=== PATIENT | male | born 1990 | race Caucasian/White ===

== ENCOUNTER 2022-03-05 09:17 | Emergency (ER) | payer MEDICARE, MEDICAID, SELFPAY ==
[2022-03-05 09:31] VITALS: BP 142/80; PULSE 76; RESP 16; TEMP 36.8; O2SAT 98; BMI 31.0
[2022-03-05 10:44] LABS: MANUAL DIFF FLAG NO
--- NOTE | 2022-03-05 10:44 | ED.MEDCLEAR ---
HPI - Medical Clearance General Chief complaint: Wound/Laceration Stated complaint: Needle stick Time Seen by Provider: 03/05/22 10:17 Source: patient Mode of arrival: ambulatory Limitations: no limitations History of Present Illness HPI Narrative: 31-year-old male who is currently at the recovery center presenting to the ED with complaints of a needlestick injury that occurred yesterday to his right hand middle finger where he was stuck by an unknown needle. He reports he cleans it was alcohol right away. He reports that he just tested negative for HIV approximately 2 weeks ago. He denies any other symptoms complaints concerns or injuries at this time. He reports that he is interested in the prophylactic for HIV. MD complaint: medical clearance requested Onset (ago): day(s) (Yesterday) Reason for Medical Clearance: other (Needlestick injury) Place: other (While at the recovery center) Related Information Allergies Allergy/AdvReac Type Severity Reaction Status Date / Time No Known Allergies Allergy Verified 03/05/22 09:30 Review of Systems Review of Systems: Constitutional : No Weight loss, No Fever, No Chills, No Night Sweats, No Fatigue, No Malaise ENT/Mouth : No Hearing loss, No Ear Pain, No Nasal Congestion, No Sinus Pain, No Hoarseness, No sore throat, No Rhinorrhea, No Swallowing Difficulty Eyes: No Eye Pain, No Swelling, No Redness, No Foreign Body, No Discharge, No Vision Changes Cardiovascular : No Chest Pain, No SOB, No Dyspnea on Exertion, No Orthopnea, No Edema, No Palpitations Respiratory : No Cough, No Sputum, No Wheezing, No Smoke Exposure, No Dyspnea Gastrointestinal : No Nausea, No Vomiting, No Diarrhea, No Constipation, No abdominal Pain, No Hematochezia, No Melena Genitourinary : no irregular bleeding, No Dysuria, No Urinary Frequency, No Hematuria, No Urinary Incontinence, No Urgency, No Flank Pain, No Urinary Flow Changes, No Hesitancy Musculoskeletal : No joint pain, No Myalgias, No Joint Swelling Skin : + needle stick injury to right hand middle finger distal aspect, No Skin Lesions, No rash Neuro : No Weakness, No Numbness, No Paresthesias, No Loss of Consciousness, No Dizziness, No Headache Psych : No Anxiety/Panic, No Depression, No SI/HI/AH/VH, No Social Issues, Heme/Lymph: No Bruising, No Bleeding,No Lymphadenopathy Endocrine : No Polyuria, No Polydipsia, No Temperature Intolerance Yes all other systems are reviewed and are negative [facility] Past Medical History Attestation statement: The following information was validated with the patient. Medical History Drug abuse FH: cholecystectomy Surgical History Hx of appendectomy Social History Social History Advance Directives: No Advance Directives Information Provided: No Physical Exam Vital Signs: Vital Signs: Last Vital Signs Temp 98.3 F 03/05/22 09:31 Pulse 76 03/05/22 09:31 Resp 16 03/05/22 09:31 BP 142/80 H 03/05/22 09:31 Pulse Ox 98 03/05/22 09:31 BMI result Body Mass Index 31.0 vital signs have been reviewed as normal and appeared to be correct. Blood pressure normal Heart rate normal. Respiration rate normal. Temperature normal. Oxygen saturation normal. Appearance: Alert. Oriented X3. No acute distress. Head: Normal external exam. Normocephalic. Atraumatic. Eyes: PERRLA. EOMI. Conjunctiva and sclera normal. Eyelids normal. ENT: Pharynx normal. Uvula midline. Moist mucous membranes. Neck: Normal inspection. Neck supple. FROM. CVS: Normal heart rate and rhythm. Respiratory: No respiratory distress. Painless inspiration. Skin: Skin warm and dry. Normal skin color. Normal skin turgor. No rashes/lesions/lacerations noted. Extremities: Extremities exhibit normal range of motion. Extremities nontender. Neuro: Oriented X 3. No motor deficit. No sensory deficit. Reflexes normal. Normal steady gait. No focal neuro deficits noted. Vascular: + radial pulses/+ 2 distal pedal pulses/+2 dorsalis pedis b/l. Normal cap refill. No cyanosis noted to upper extremity nails and lower extremity toes nails. Course Course Course Narrative: 10:45am - 31-year-old male who is currently at the recovery center presenting to the ED with complaints of a needlestick injury that occurred yesterday to his right hand middle finger where he was stuck by an unknown needle. He reports he cleans it was alcohol right away. He reports that he just tested negative for HIV approximately 2 weeks ago. He denies any other symptoms complaints concerns or injuries at this time. He reports that he is interested in the prophylactic for HIV. Plan: Labs including HIV/Hep B and Hep C and provide post exposure kit. Reevaluation(s) Reevaluation #1: - labs within normal limits. HIV/hepatitis B and hepatitis C pending. Will DC home with HIV post exposure kit and instructions to follow-up with Infectious Disease versus PCP versus were connection to return if any new or worsening symptoms and if anything is positive we will contact him. Patient understands agrees with this plan. Time: 11:20 MDM - Medical Clearance Medical Records Attestation: I reviewed the patient's medical records. Lab Data Attestation: I reviewed the patient's lab results. Result diagrams: 03/05/22 10:41 03/05/22 10:41 Labs: Lab Results 03/05/22 03/05/22 Range/Units 10:41 10:41 WBC 8.8 (4.8-10.8) X10*3/uL RBC 5.12 (4.60-5.80) X10*6/uL Hgb 13.8 L (14.0-18.0) g/dl Hct 42.6 (42.0-52.0) % MCV 83.2 (80.0-98.0) fL MCH 27.0 (27.0-33.0) pg MCHC 32.4 (31.0-36.0) g/dl RDW 13.9 (11.0-16.0) % Plt Count 226 (160-400) X10*3/uL MPV 10.1 (9.4-12.4) fL Immature Gran % (Auto) 0.2 (0.0-0.4) % Neut % (Auto) 63.0 (45-73) % Lymph % (Auto) 22.6 (20-40) % Atkinson % (Auto) 11.5 H (2-11) % Eos % (Auto) 2.4 (0-4) % Baso % (Auto) 0.3 (0-2) % Lymph # (Auto) 2.0 (1.2-4.9) X10*3/uL Atkinson # (Auto) 1.0 (0.1-1.2) X10*3/uL Eos # (Auto) 0.2 (0.0-0.4) X10*3/uL Baso # (Auto) 0.0 (0.0-0.2) X10*3/uL Abs Immat Gran (auto) 0.02 (0.00-0.03) X10*3/uL Absolute Neuts (auto) 5.6 (2.0-8.3) x10*3/uL Absolute Nucleated RBC 0.000 (0.0-0.012) X10*3/uL Nucleated RBC % (auto) 0.0 (0.0-0.2) /100WBC Sodium 141 (135-145) mmol/L Potassium 4.4 (3.3-5.1) mmol/L Chloride 107 (96-108) mmol/L Carbon Dioxide 28 (22-29) mmol/L Anion Gap 10 L (12-20) BUN 13 (9-16) mg/dL Creatinine 0.83 (0.5-1.4) mg/dL Estim Creat Clear Calc 166.9 Estimated GFR > 60 Random Glucose 93 (60-115) mg/dL Calcium 9.8 (8.4-10.2) mg/dL Magnesium 2.0 (1.6-2.6) mg/dL Total Bilirubin 0.6 (0.0-1.0) mg/dL Direct Bilirubin 0.2 (0.0-0.5) mg/dL AST 23 (5-37) U/L ALT 16 (0-40) U/L Alkaline Phosphatase 77 (39-117) U/L Total Protein 7.0 (6.5-8.0) g/dL Albumin 4.3 (3.5-5.0) g/dL Discharge Plan Discharge Clinical Impression: Accidental hypodermic needlestick injury Patient Disposition: Home, Self-Care Instructions: Needle Stick Injuries (ED) Additional Instructions: You have pending lab results if any are positive you will be contacted. Follow-up with your PCP/infectious disease vs were connection. Referrals: [facility] [Provider Group] Joanna Cade MD [Physician] - Physician,Unknown J [Primary Care Provider] - (your pcp) Print Language: Macedonian
[2022-03-05 10:59] LABS: Basophils Percent Auto 0.3 % (0-2); Eosinophils Absolute Auto 0.2 X10*3/uL (0.0-0.4); Eosinophils Percent Auto 2.4 % (0-4); Hematocrit 42.6 % (42.0-52.0); Hemoglobin 13.8 g/dl (14.0-18.0); Imm Gran Abs Auto 0.02 X10*3/uL (0.00-0.03); Imm Gran Pct Auto 0.2 % (0.0-0.4); Lymphocytes Percent Auto 22.6 % (20-40); Mean Corpuscular HGB Conc 32.4 g/dl (31.0-36.0); Mean Corpuscular Volume 83.2 fL (80.0-98.0); Mean Platelet Volume 10.1 fL (9.4-12.4); Monocytes Percent Auto 11.5 % (2-11); Neutrophils Absolute Auto 5.6 x10*3/uL (2.0-8.3); Platelet Count 226 X10*3/uL (160-400); Red Blood Count 5.12 X10*6/uL (4.60-5.80); Red Cell Distribution Width 13.9 % (11.0-16.0); White Blood Count 8.8 X10*3/uL (4.8-10.8)
[2022-03-05 11:06] LABS: Alanine Aminotransferase 16 U/L (0-40); Albumin Level 4.3 g/dL (3.5-5.0); Alkaline Phosphatase 77 U/L (39-117); Anion Gap 10 (12-20); Aspartate Amino Transferase 23 U/L (5-37); Bilirubin Direct 0.2 mg/dL (0.0-0.5); Bilirubin Total 0.6 mg/dL (0.0-1.0); Blood Urea Nitrogen 13 mg/dL (9-16); Calcium 9.8 mg/dL (8.4-10.2); Carbon Dioxide 28 mmol/L (22-29); Chloride 107 mmol/L (96-108); Creatinine Clr Calc Pharmacy 166.9; Estimated Glomerular Filt Rate > 60; Glucose Random 93 mg/dL (60-115); Potassium 4.4 mmol/L (3.3-5.1); Sodium 141 mmol/L (135-145)
[2022-03-05 11:27] LABS: ~Hepatitis C Antibody Nonreactive (Nonreactive)
[2022-03-05] MEDS: Post Exposure Medication Kit 1 KIT PO (11:29)
[2022-03-05 11:31] LABS: HBS Num1 4.25 mIU/mL (0-7.99); HBc Num1 0.07 S/CO (0.00-0.79); HBsAGNum1 0.23 S/CO (0.00-0.99); HIV AB/AG Nonreactive (Nonreactive); HIV Num 1 0.45 S/CO (0.00-0.99); Hepatitis B Core Antibody Nonreactive (Nonreactive); Hepatitis B Surface Antigen Negative (Negative); ~Hepatitis B Surface Antibody NONREACTIVE (Nonreactive)
== END 2022-03-05 11:36 | disposition home or self-care (01) ==
PROVIDERS: Physician Assistant Medical; Emergency Provider Emergency Medicine
DX: S61.232A Puncture wound without foreign body of right middle finger without damage to nail, initial encounter (principal); Y28.9XXA Contact with unspecified sharp object, undetermined intent, initial encounter; Y93.9 Activity, unspecified; Y92.9 Unspecified place or not applicable; Y99.9 Unspecified external cause status; Z20.828 Contact with and (suspected) exposure to other viral communicable diseases
CPT/HCPCS: 36415; 80048; 80076; 83735; 85025; 86704; 86706; 86803; 87340; 87389; 99283

== ENCOUNTER 2022-03-06 11:28 | Emergency (ER) | payer MEDICARE, MEDICAID, SELFPAY ==
[2022-03-06 11:48] VITALS: BP 142/70; PULSE 75; RESP 16; TEMP 36.6; O2SAT 99; BMI 31.0
[2022-03-06 12:24] LABS: Amphetamine Screen Urine Not Detected (Not Detect); Barbiturates, Urine Not Detected (Not Detect); Benzodiazepines Screen Urine Not Detected (Not Detect); Cannabinoid Screen Urine Not Detected (Not Detect); Cocaine Screen Urine Not Detected (Not Detect); Fentanyl, urine POSITIVE (Not Detect); Opiate Screen Urine POSITIVE (Not Detect); Phencyclidine Screen Urine Not Detected (Not Detect)
--- NOTE | 2022-03-06 14:35 | ED_ITS ---
HPI - Medical Clearance General Chief complaint: Medical Clearance Stated complaint: Medical clearance Time Seen by Provider: 03/06/22 14:23 Source: patient Mode of arrival: ambulatory Limitations: no limitations History of Present Illness HPI Narrative: Patient presents to the emergency department, his dual diagnosis program. He reports that he has been 19 days ago continues to test positive for opiates. He denies using over the past 19 days, states it is a locked facility cameras and he would be unable to use. He states that he needs medical clearance stating that he does not require Suboxone or methadone for withdrawal symptoms. Patient denies runny nose excessive yawning, restlessness, irritability, pain, chills, sweating, abdominal pain, nausea, vomiting, diarrhea, muscle cramping /aching. Related Information Previous Rx's Medication Instructions Recorded naloxone 4 mg/actuation nasal 4 mg INTRANASAL Q3M PRN #2 ea 03/06/22 spray (Narcan) Allergies Allergy/AdvReac Type Severity Reaction Status Date / Time No Known Allergies Allergy Verified 03/05/22 09:30 Review of Systems Review of Systems: Constitutional: No weight loss, fever, chills, sweats, weakness or fatigue. Skin: No rash or itching. Cardiovascular: No chest pain, chest pressure or chest discomfort. No palpitations or pedal edema. Respiratory: No shortness of breath, cough or sputum production. Gastrointestinal: No anorexia, nausea, vomiting or diarrhea. No abdominal pain or blood in stool. Genitourinary: No burning micturition. No urinary frequency or incontinence. Musculoskeletal: No muscle pain, back pain, joint pain or stiffness. Psychiatric: No depression or anxiety. Yes all other systems are reviewed and are negative PMFSH Past Medical History Attestation statement: The following information was validated with the patient. Source: old records reviewed Medical History Drug abuse FH: cholecystectomy Surgical History Hx of appendectomy Social History Social History Advance Directives: No Physical Exam Vital Signs: Vital Signs: Last Vital Signs Temp 98 F 03/06/22 11:48 Pulse 75 03/06/22 11:48 Resp 16 03/06/22 11:48 BP 142/70 H 03/06/22 11:48 Pulse Ox 99 03/06/22 11:48 BMI result Body Mass Index 31.0 Vital signs have been reviewed as normal and appeared to be correct. Blood pressure mildly elevated 142/70.? Heart rate normal.? Respiration rate normal. Temperature normal.? Oxygen saturation normal. Appearance: Alert.?Oriented to person, place and time. No acute distress.?Normal affect. Eyes: Pupils equal, round and reactive to light.? ENT: Pharynx normal.?? Neck: Normal inspection.? Neck supple.?? CVS: Heart sounds normal. Normal heart rate and rhythm.? Pulses normal.?? Respiratory: No respiratory distress.? Lung sounds clear to auscultation bilaterally?? Abdomen: Soft and non-tender. Normoactive bowel sounds. Skin: Skin warm and dry.? Normal skin color.? Normal skin turgor.?? Extremities: No lower extremity edema.? Neuro: Moves all extremities spontaneously. Sensation intact bilaterally. No focal neuro deficits. Ambulates with normal steady gait. Course Course Course Narrative: Patient is a 31-year-old male with a history of substance use disorder. Patient was evaluated in the emergency department yesterday for an accidental needlestick injury from the needle, he is vague about the history of this incident. Urine toxicology is positive for opiates and fentanyl. Experiencing no active symptoms of withdrawal, and insists that he has not used any substances for 19 days. Declines interest in Suboxone or methadone medication treatment management. Patient would like to return to dual diagnosis recovery program. Provided with a letter of medical clearance, plan for discharge to treatment program, provided prescription for narcan. [facility] - Medical Clearance Medical Records Attestation: I reviewed the patient's medical records. Lab Data Labs: Lab Results 03/06/22 Range/Units 11:57 Urine Opiates Screen POSITIVE H (Not Detect) Urine Fentanyl Screen POSITIVE H (Not Detect) Ur Barbiturates Screen Not Detected (Not Detect) Ur Phencyclidine Scrn Not Detected (Not Detect) Ur Amphetamines Screen Not Detected (Not Detect) U Benzodiazepines Scrn Not Detected (Not Detect) Urine Cocaine Screen Not Detected (Not Detect) U Marijuana (THC) Screen Not Detected (Not Detect) Discharge Plan Discharge Clinical Impression: Substance abuse Patient Disposition: Home, Self-Care Instructions: Polysubstance Abuse (ED) Additional Instructions: You were evaluated in the emergency department for medical clearance to return back to a dual diagnosis program. Your urine toxicology was positive for fentanyl and opiates. This time you were not exhibiting signs or symptoms of withdrawal. We discussed maintenance therapy with Suboxone or methadone, and you declined. At this time you are medically cleared. Please return to the emergency department with any new symptoms or concerns. Prescriptions: New naloxone [Narcan] 4 mg/actuation spray,non-aerosol 4 mg intranasal Q3M PRN (Reason: opioid overdose) Qty: 2 0RF Rx Instructions: spray 1 dose into ONE nostril; alternate nostrils w each dose until help arrives Interventions: ED Discharge Assessment Last Done: 03/06/22 15:05 Discharge Date/Time: 03/06/22 15:06
== END 2022-03-06 15:06 | disposition home or self-care (01) ==
PROVIDERS: Emergency Medicine; Emergency Provider Emergency Medicine
DX: F11.19 Opioid abuse with unspecified opioid-induced disorder (principal); Z79.899 Other long term (current) drug therapy
CPT/HCPCS: 80307; 99283